=== PATIENT | male | born 1985 | race Caucasian/White ===

== ENCOUNTER 2022-01-05 09:57 | Emergency (ER) | payer OTHER ==
[~2022-01-05] VITALS: Ht 177.8 cm; Wt 77.0 kg
[2022-01-05 10:30] VITALS: BP 130/88
== END 2022-01-05 10:32 ==
LOC: ER 09:57
DX: S40.012A Contusion of left shoulder, initial encounter (principal); S09.8XXA Other specified injuries of head, initial encounter; S00.211A Abrasion of right eyelid and periocular area, initial encounter; S40.212A Abrasion of left shoulder, initial encounter; Y07.04 Female partner, perpetrator of maltreatment and neglect; R03.0 Elevated blood-pressure reading, without diagnosis of hypertension; Y04.2XXA Assault by strike against or bumped into by another person, initial encounter; Y93.89 Activity, other specified; Y92.89 Other specified places as the place of occurrence of the external cause
CPT/HCPCS: 99283